=== PATIENT | female | born 1990 | race Caucasian/White ===

== ENCOUNTER 2018-09-26 09:49 | Emergency (ER) | payer OTHER ==
[2018-09-26] MEDS: ACETAMINOPHEN 500 MG TAB PO (10:19)
[2018-09-26] MEDS: IBUPROFEN 800 MG TAB PO (10:19)
[2018-09-26 10:20] LABS: URINE BLOOD (Dip) POC 1+ (NEGATIVE); URINE GLUCOSE (Dip) POC Negative (NEGATIVE); URINE KETONES (Dip) POC 2+ (NEGATIVE); URINE LEUKOCYTE EST (Dip) POC Trace (NEGATIVE); URINE NITRITE (Dip) POC Negative (NEGATIVE); URINE TOTAL PROTEIN POC 1+ (NEGATIVE)
[2018-09-26 10:20] LABS: URINE PH (Dip) POC 6.5 (5.0-8.5)
== END 2018-09-26 12:05 | disposition home or self-care (01) ==
LOC: FTE 09:49
DX: B34.9 Viral infection, unspecified (principal)
CPT/HCPCS: 71045; 81003; 81025; 87400; 99284-25

== ENCOUNTER 2018-11-08 14:29 | Emergency (ER) | payer OTHER ==
[2018-11-08] MEDS: ONDANSETRON (ODT) 4 MG TAB ODT (15:53)
== END 2018-11-08 15:53 | disposition home or self-care (01) ==
LOC: FTE 14:29
DX: R11.2 Nausea with vomiting, unspecified (principal); R19.7 Diarrhea, unspecified
CPT/HCPCS: 99283; Z7502